=== PATIENT | female | born 1990 | race Caucasian/White ===

== ENCOUNTER 2017-04-05 21:12 | Emergency (ER) | payer OTHER ==
[2017-04-05 23:28] LABS: HEMOGLOBIN 14.2 gm/dl (12.3-15.3); RED BLOOD COUNT 4.59 M/UL (4.00-5.10); WHITE BLOOD COUNT 10.1 K/UL (4.5-11.0)
[2017-04-05 23:51] LABS: BUN/CREATININE RATIO 10 (0-10)
== END 2017-04-06 01:54 | disposition home or self-care (01) ==
LOC: ER1 21:12
PROVIDERS: Family Medicine
DX: K64.5 Perianal venous thrombosis (principal); R10.84 Generalized abdominal pain; Z87.19 Personal history of other diseases of the digestive system; Z88.1 Allergy status to other antibiotic agents
CPT/HCPCS: 36415; 71020; 80053; 82272; 84703; 85025; 85610; 96374; 96375; 99283; J1885; J2405; J7050; Q9962